=== PATIENT | female | born 2000 | race Caucasian/White ===

== ENCOUNTER 2025-01-09 15:55 | Emergency (ER) | payer BC, SELFPAY ==
--- OUTSIDE RECORDS SUMMARY | 2010-04-01 19:00 | XMS_ITS | Continuity of Care Document ---
Author Organization [facility] Address [address] [place] [address] Phone Care Team Providers Care Capacity Planner Name Role Phone Conversion MD, Doctor Unavailable Unavailabl e Medications Medication Instructions Dosage Effective Dates (start - stop) Status Comments NASONEX 50MCG APPLICS 1 [facility] - Acti ve Advance Directives Directive Yes / No Effective Date File Name No Information Encounters Encounter Description Practice Location Reason(s) For Visit Diagnoses Date Provider Providers Copied on Encounter Catalist Homes [facility], [address], [place], [place], [id number], tel:[phone] Conversion Department No Information 1 Conversion Doctor. [address] [place] [address], [address], . [facility], [address], [place], [id number], tel:[phone] [facility] 8 Luis Shannon. [address] [place] [address], [id number], . tel:[phone] Family History Family Member Type Diagnosis Age At Onset No Information Payers Payer name Insurance type Covered republican ID Authoriza tion(s) No Information Social History Type Description Quantity Date Captured Comments Sex Female Smoking Status No Information Chief Complaint And Reason For Visit No Information Reason For Referral Reason For Referral No Information History Of Present Illness Encounter Date Complaint History Of Prese nt Illness No Information Functional Status Date Functional Assessmen t No Information Instructions Date Instruction Additional Infor mation No Information Assessments Type Assessment Date No Information Patient Care Teams Name Effective Dates (start - stop) Status Members No Information
--- OUTSIDE RECORDS SUMMARY | 2025-01-09 16:05 | XMS_ITS | Clinical Summary ---
Author Organization [facility] Address [address] [address] Phone Care Team Providers Care Seaport Planning Manager Name Role Phone Hope Kyle NP Primary Care Provide r Allergies Active Allergy Reactions Criticality Noted Date Comments Milk Ranitidine Medications etonogestreL (NEXPLANON) 68 mg implantIndication s: Contraception Paid by Insurance Inserted 08-12-20 Lot # [id number] Exp. [id number] Active sertraline (ZOLOFT) 50 mg tablet 02/11/20 21 Active clotrimazole 1 % creamIndications: Angular cheilitis Apply topically 2 (two) times a day Use for 1-3 weeks. Continue use for 1 week after symptoms resolve 30 g 04/28/19 25 Active Additional Information Patient not taking.Reported on 12/27/2024 fluticasone propionate (FLONASE) 50 mcg/actuation nasal spray Administer 1-2 sprays into affected nostril(s) daily 01/18/20 21 Active amoxicillin-clavu lanate (Augmentin) 500-125 mg per tabletIndications :Strep pharyngitis Take 1 tablet (500 mg of amoxicillin total) by mouth 2 (two) times a day for 10 days 20 tablet 12/28/19 25 025 Hospital, Clinic, or Other Facility Administered Medication Ordered Dose Route Frequency Start Date End Date Status acetaminophen (TYLENOL) tablet 650 mgIndications:Fever, unspecified fever cause 650 mg oral Once 12/27/2024 12/27/2024 E nded Active Problems Problem Noted Date Diagnosed Date Encounter for removal and reinsertion of Nexplan on 08/16/2023 Assessment & Plan (08/16/2023 4:00 PM CDT): The patient underwent Nexplanon exchange without difficulty. She tolerated the procedure well. She was counseled to leave the Steri-Strips intact for 48 hours the pressure dressing intact for 24 hours. She will notify my office with any sign of infection. She is due for a well-woman exam and will get that scheduled in the near future. She will call with any further questions or concerns. Chronic eczematous otitis externa of both ears 1 05/01/2020 Assessment & Plan (02/28/2021 1:20 PM ACUTE CARE PHYSICAL THERAPIST): Avoid ear cleaning techniques Avoid water to ears Elocon cream to ear twice daily for two weeks Referred otalgia of both ears 02/28/2021 Assessment & Plan (02/28/2021 1:21 PM ACUTE CARE PHYSICAL THERAPIST): TMJ discussed and Handout provided Oral Surgeon contact information provided Impacted cerumen of left ear 02/28/2021 Assessment & Plan (02/28/2021 1:21 PM ACUTE CARE PHYSICAL THERAPIST): Avoid ear cleaning techniques Avoid water to ears Elocon cream to ear twice daily for two weeks Encounters Date Type Department Care Team Description 12/27/2024 3:30 PM CDT Office Visit [facility] [address] [place] [address] Bethany Monk, JULIO Sore throat (Primary Dx); Fever, unspecified fever cause; Strep pharyngitis from Last 3 Months Surgical History Surgery Date Site/Laterality Comments ADENOIDECTOMY NOSE SURGERY septoplasty Medical History Medical History Date Comments Cervicalgia Neck pain - (Add ed by TW Conv) Personal history of other sp ecified conditions History of vomiting - (Added by TW Conv) Personal history of other sp ecified conditions History of diarrhea - (Added by TW Conv) Periumbilical pain Abdominal walker n, periumbilical - (Added by TW Conv) Family History Medical History Relation Name Comments No Known Problems Father No Known Problems Mother Relation Name Status Comments Father Alive Mother Alive Social History Tobacco Use Types Packs/Day Years Used Date Smoking Tobacco: Never Smokeless Tobacco: Never Tobacco Cessation:Counseling Given: Not Answered Alcohol Use Standard Drinks/Week Comments Not Currently 0 (1 standard drink = 0.6 oz pur e alcohol) PHQ-2 Answer Date Recorded PHQ-2 Total Score (If total score is 3 or more points, staff should administer the PHQ-9) 4 05/03/2021 Comments No Sex and Gender Information Value Date Recorded Sex Assigned at Not on file Legal Sex Female 2:36 AM ACUTE CARE PHYSICAL THERAPIST Gender Identity Not on file Sexual Orientation Not on file Obstetrics History Last Filed Vital Signs Vital Sign Reading Time Taken Comments Blood Pressure 100/64 12/27/2024 3:39 PM CDT Pulse 87 12/27/2024 3:39 PM CDT Temperature 39.2 C (102.5 F) 12/27/2024 3:39 PM CDT Respiratory Rate 18 12/27/2024 3:39 PM CDT Oxygen Saturation 95% 12/27/2024 3:39 PM CDT Inhaled Oxygen Concentration - - Weight 74.5 kg (164 lb 3.2 oz) 12/27/2024 3:39 P M CDT Height 149.9 cm (4' 11) 04/28/2024 6:21 PM ACUTE CARE PHYSICAL THERAPIST Body Mass Index 33.16 04/28/2024 6:21 PM ACUTE CARE PHYSICAL THERAPIST Plan of Treatment Health Maintenance Due Date Last Done Comments Hepatitis C Screening 1998 Varicella Vaccines (2 of 2 - 2-dose childhood series) 2002 12/07/1999 DTaP/Tdap/Td Vaccine (5 - Tdap) 2009 04/05/2000, 05/31/1999, 04/06/1999, Additional history exists HPV Vaccines (1 - 3-dose series) 2013 Cervical Cancer Screening 07/21/2021 07/21/2020 Regular Well Visit/Exam 18-64 07/21/2021 07/21/2020 Depression Screening 05/03/2022 05/03/2021 Influenza Vaccine (#1) 2024 02/12/2008 Hepatitis B Screening Completed 09/05/1999 , 04/06/1999, 02/02/1999 Pneumococcal vaccine <65 Aged Out 04/05/2000 No longer eligible based on patient's age to complete this topic Procedures Procedure Name Priority Date/Time Associated Diagnosis Comments POCT RAPID STREP Routine 12/27/2024 4:01 PM CDT Sore throat POCT INFLUENZA A/B Routine 12/27/2024 4: 01 PM CDT Sore throat PAP WITH REFLEX TO HIGH RISK HPV Routine 07/21/2020 11:20 AM CDT from Last 3 Months or Most Recently Relevant to Health Maintenance Results * POCT influenza A/B (12/27/2024 4:01 PM CDT) Rapid Influenza A Ag Negative Negative, Invalid Rapid Influenza B Ag Negative Negative, Invalid Nasal 12/27/2024 4:01 PM CDT Bethany Monk BOLT LABELER POINT OF CARE TEST ORDERAB LES Final Result * (ABNORMAL) POCT rapid strep A (12/27/2024 4:01 PM CDT) Rapid Strep A, POC Positive(A ) Negative Swab 12/27/2024 4:01 PM CDT Bethany Monk NP POINT OF CARE TEST ORDERAB LES Final Result * Pap with reflex to High Risk HPV (07/21/2020 11:20 AM CDT) CLINICAL INFORMATION: [facility] Comment:Information not prov ided LMP [facility] Comment:07/11/20 Previous Pap [facility] Comment:INFORMATION NOT PROV IDED Prev. Bx [facility] Comment:INFORMATION NOT PROV IDED SOURCE: [facility] Comment:Cervix, Endocervix Pap, specimen adequacy [facility] Comment: Satisfactory for evaluation. Endocervical/transformation zone component present. HPV interp [facility] Comment:Negative for intraep ithelial lesion or malignancy. [facility]: Shift in vaginal stefanie suggestive of bacterial vaginosis. COMMENTS [facility] Comment: This Pap test has been evaluated with computer assisted technology. Mock Up Builder [facility] Comment: AMW, CT(ASCP) CT screening location: [place] [address] [place] [address] Comment [facility] Comment: EXPLANATORY NOTE: The Pap is a screening test for cervical cancer. It is not a diagnostic test and is subject to false negative and false positive results. It is most reliable when a satisfactory sample, regularly obtained, is submitted with relevant clinical findings and history, and when the Pap result is evaluated along with historic and current clinical information. 07/21/2020 11:2 0 AM CDT 07/22/2020 3:24 AM CDT us Jazlyn Garcia BOLT LABELER LAB CYTOLOGY ORDERABLES F inal Result [place] [address] [place] [address] from Last 3 Months or Most Recently Relevant to Health Maintenance Care Teams Seaport Planning Manager Relationship Specialty Start Date End Date Hope Kyle NP [address] [place] [address] PCP - General Emergency Medicine 07/20/20
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
[2025-01-09 16:06] VITALS: BP 134/90; PULSE 77; RESP 20; TEMP 36.9; O2SAT 100
--- NOTE | 2025-01-09 16:22 | ED.URI ---
HPI - URI/Sore Throat General Chief Complaint: Upper Respiratory Infection Stated Complaint: Sinus Problem/Sore Throat Time Seen by Provider: 01/09/25 16:16 Source: patient and RN notes reviewed Mode of arrival: ambulatory Limitations: no limitations History of Present Illness HPI Narrative: 24-year-old female patient presents today with sore throat, cough, nasal congestion rhinorrhea. Denies fever or shortness of breath. She currently rates her pain 6/10 and has tried no OTC treatment prior to arrival. Patient was treated with Augmentin for strep throat starting on 12/27/2024 for 10 days. States her symptoms have not improved while on the medication. While she was on the antibiotics she was taking aspirin and Tylenol for her discomfort. Related Data Allergies Allergy/AdvReac Type Severity Reaction Status Date / Time No Known Allergies Allergy Verified 01/09/25 16:11 PMFSH Comments At time of signature, I have reviewed and agree with nursing past medical, surgical, social and family history unless otherwise noted. Please see nursing chart for further information. There is no relevant family history pertinent to the presenting complaint Exam Narrative: GENERAL: Mildly ill-appearing, well-nourished, and in no acute distress. HEAD: Normocephalic, atraumatic. EYES: EOMI. No redness or drainage. Conjunctivae normal. ENT: Mucous membranes pink and moist. Nares mildly congested with rhinorrhea. TMs normal bilaterally. Throat very mildly erythematous without edema or exudate with clear postnasal drainage. Uvula midline. NECK: Normal AROM. Supple. No lymphadenopathy. CHEST: No respiratory distress. Clear to auscultation. HEART: Regular rate and rhythm. No murmur appreciated. EXTREMITIES: Normal range of motion. No edema. SKIN: Warm, dry, no rash. Capillary refill normal. Normal skin turgor. NEURO: No focal deficits. Alert and oriented x3. Gait steady. PSYCH: Normal affect. No signs of depression or anxiety. Course Course Level of Care: Express Care Visit Vital Signs Vital signs: Vital Signs Temperature 98.5 F 01/09/25 16:06 Pulse Rate 77 01/09/25 16:06 Respiratory Rate 20 01/09/25 16:06 Blood Pressure 134/90 01/09/25 16:06 Pulse Oximetry 100 01/09/25 16:06 Oxygen Delivery Room Air 01/09/25 16:06 Temperature 98.5 F 01/09/25 16:06 Pulse Rate 77 01/09/25 16:06 Respiratory Rate 20 01/09/25 16:06 Blood Pressure 134/90 01/09/25 16:06 Pulse Oximetry 100 01/09/25 16:06 Oxygen Delivery Room Air 01/09/25 16:06 Reviewed MDM - URI/Sore Throat MDM Narrative Medical decision making narrative: 24-year-old female patient presents today with sore throat, cough, nasal congestion rhinorrhea. Denies fever or shortness of breath. She currently rates her pain 09/02 and has tried no OTC treatment prior to arrival. Patient was treated with Augmentin for strep throat starting on 12/27/2024 for 10 days. States her symptoms have not improved while on the medication. While she was on the antibiotics she was taking aspirin and Tylenol for her discomfort. Upon exam, patient is mildly ill appearing with a mildly erythematous throat with small amount of postnasal drainage. Rapid strep negative. Will place patient on a course of Keflex possible refractory strep as well as some benzonatate for her cough. Told patient that if her symptoms do not immediately get better with the antibiotics that she may have a respiratory virus. Discussed [id number] medication for her symptoms as well. Patient agrees with plan. Vital signs stable. Differential Diagnosis Differential diagnosis: Likely upper respiratory infection, sinusitis, viral infection, bronchitis, influenza, pharyngitis and other (Strep throat, COVID) Lab Data Attestation: I reviewed the patient's lab results. Lab results narrative: Rapid strep negative. COVID and influenza swabs negative. Critical Care Time Critical Care Time Critical Care Time: No Discharge Plan Discharge Clinical Impression: Pharyngitis Qualifiers: Pharyngitis/tonsillitis etiology: unspecified etiology Qualified Code(s): J02.9 - Acute pharyngitis, unspecified Cough Qualifiers: Cough type: unspecified Qualified Code(s): R05.9 - Cough, unspecified Patient Disposition: Home Condition: Stable Instructions: Pharyngitis (ED) Additional Instructions: Your influenza and COVID swabs, your rapid strep swab was negative today at [facility]. Please take the Keflex as prescribed until gone for possible recurrent strep. Take the benzonatate for cough. Take take Tylenol or ibuprofen for discomfort for fever or pain. Rest and stay hydrated. Follow up with your PCP in 3-4 days if symptoms are not improving. Go to the ER immediately if you have any difficulty breathing or swallowing. Patient Language: Maori Prescriptions: New benzonatate 200 mg capsule 200 mg PO TID PRN (Reason: cough) Qty: 20 0RF cephalexin 500 mg capsule 500 mg PO BID 10 Days Qty: 20 0RF Follow-up/Referrals: PHYSICIAN NOT ON STAFF,NONSTAFF [Primary Care Provider] Time of Disposition: 16:36
[2025-01-09 16:34] LABS: EDCOVIDSCREEN Negative (Negative); EDINFLUASCREEN Negative (Negative); EDINFLUBSCREEN Negative (Negative)
[2025-01-09 16:37] LABS: EDSTREPNEGPOS1 Negative (Negative)
== END 2025-01-09 16:40 | disposition home or self-care (01) ==
PROVIDERS: Emergency Provider Nurse Practitioner
DX: J02.9 Acute pharyngitis, unspecified (principal); R05.9 Cough, unspecified; Z20.822 Contact with and (suspected) exposure to COVID-19
CPT/HCPCS: 87426; 87804; 87880; 99213; G0463